=== PATIENT | female | born 1940 | race Caucasian/White ===

== ENCOUNTER 2022-06-18 12:45 | Emergency (ER) | payer OTHER ==
[~2022-06-18] VITALS: Ht 154.9 cm; Wt 57.6 kg
[2022-06-18 13:12] VITALS: BP_SYST 136
--- NOTE | 2022-06-18 13:18 | NUR ---
BIBS WITH C/C OF LAST 2 WEEKS EVERY TIME PT HAS HAD A BOWEL MOVEMENT THE LAST PART OF HER BM IS VERY DARK IN COLOR. PT STATES WITH EACH SITTING THE LAST STOOL IS ALWAYS ALMOST BLACK IN COLOR. PT REPORTS PAIN WHEN SHE HAS THE LAST STOOL BUT NOT WITH THE PRIOR STOOLS. HX OF ARTHRITIS AND STATES SHE WAS STARTED ON MOBIC, BUT HAS STOPPED TAKING THAT NOW. PT PLACED IN LOBBY PENDING BED IN ED.
[2022-06-18 14:25] LABS: BASOPHILS % (AUTO) 0.4 % (0.0-2.0); EOSINOPHILS # (AUTO) 0.1 K/uL (0.0-0.4); EOSINOPHILS % (AUTO) 0.8 % (0.0-4.0); HEMATOCRIT 40.5 % (36-48); LYMPHOCYTES # (AUTO) 1.8 K/uL (1.0-5.5); LYMPHOCYTES % (AUTO) 18.3 % (20.5-51.5); MEAN CORPUSCULAR VOLUME 90 fL (79.0-98.0); MONOCYTES # (AUTO) 0.7 K/uL (0.0-1.0); MONOCYTES % (AUTO) 7.7 % (1.7-9.3); NEUTROPHILS % (AUTO) 72.8 % (40.0-70.0); PLATELET COUNT (AUTO) 233 K/uL (130-430); RED BLOOD CELL COUNT(AUTO) 4.49 MIL/uL (4.2-6.2); RED CELL DISTRIBUTION WIDTH 12.9 % (9.0-15.0); WHITE BLOOD COUNT (AUTO) 9.5 K/uL (4.8-10.8)
[2022-06-18 15:00] LABS: ANION GAP 11 (5-15); CALCIUM 9.5 mg/dL (8.4-11.0); CHLORIDE 100 mmol/L (98-107); CREATININE 0.77 mg/dL (0.55-1.30); GLUCOSE 107 mg/dL (70-99); POTASSIUM 3.4 mmol/L (3.5-5.1); SODIUM SERUM 139 mmol/L (136-145); UREA NITROGEN, BLOOD 13 mg/dL (8-21)
[2022-06-18 15:04] LABS: ALANINE AMINOTRANSFERASE 15 U/L (12-78); AMYLASE 40 U/L (0-100); ASPARTATE AMINOTRANSFERASE 19 U/L (10-37); LACTATE DEHYDROGENASE 177 U/L (81-234); LIPASE 108 U/L (73-393); TOTAL BILIRUBIN 0.5 mg/dL (0.0-1.0)
[2022-06-18 15:08] LABS: C-REACTIVE PROTEIN QUANT < 0.2 mg/dL (0-0.5)
[2022-06-18 15:42] LABS: BILIRUBIN,URINE NEGATIVE (NEGATIVE); BLOOD, URINE NEGATIVE (NEGATIVE); CLARITY/URINE CLEAR (CLEAR); COLOR,URINE YELLOW (YELLOW); GLUCOSE,URINE NEGATIVE (NEGATIVE); KETONES,URINE 1+ (NEGATIVE); LEUKOCYTE ESTERASE ,URINE NEGATIVE (NEGATIVE); NITRITE, URINE NEGATIVE (NEGATIVE); PROTEIN URINE NEGATIVE (NEGATIVE); UROBILINOGEN,URINE 0.2 (0.2-1.0)
--- NOTE | 2022-06-18 16:29 | NUR ---
PT CLEARED FOR DC. VERBALIZED UNDERSTANDING OF DC INSTRUCTIONS. NAD NOTED. PT INFORMED TO KEEP HYDRATED AND USE STOOL SOFTENERS FOR BM. PT AMBULATED OUT OF ED IN STABLE CONDITION.
== END 2022-06-18 16:29 | disposition home or self-care (01) ==
LOC: SED 12:45
DX: R10.13 Epigastric pain (principal); K59.00 Constipation, unspecified; Z79.899 Other long term (current) drug therapy
CPT/HCPCS: 36415; 76376; 80053; 80162; 81003; 82150; 83605; 83615; 83690; 84484; 85025; 86140; 99284